=== PATIENT | male | born 1975 | race Two or more races ===

== ENCOUNTER → 2016-09-21 | Outpatient (REF) | payer BC | LOC: M SFHCLERA 09:39 | PROVIDERS: ATTEND Nurse Practitioner Family | DX: R19.7 Diarrhea, unspecified (principal) ==

== ENCOUNTER → 2018-07-15 | Outpatient (REF) | payer BC | LOC: M SFHCLERA 14:38 | PROVIDERS: ATTEND Physician Assistant | DX: R05 Cough (principal) ==

== ENCOUNTER 2019-06-20 12:18 | Emergency (ER) | payer BC, OTHER ==
[~2019-06-20] VITALS: Ht 172.7 cm; Wt 109.1 kg
--- NOTE | 2019-06-20 13:09 | REP ---
Clinical: Trauma. Injury. Technique: AP, lateral, bilateral oblique views of the right wrist. Findings: No acute fracture dislocation. Skeletal structures, joint spaces, and surrounding soft tissues appear relatively normal for age. Impression: No acute fracture dislocation. If the patient remains symptomatic consider reevaluation in 3-5 days including scaphoid view if necessary. Electronically Signed by Boni Browning MD 06/20/2019 01:02 P
--- NOTE | 2019-06-20 13:11 | REP ---
Clinical: Trauma. Technique: AP, lateral, bilateral oblique views right hand . Findings: The osseous structures and joint spaces are intact and normal. There is no evidence for acute fracture or dislocation. Surrounding soft tissues are unremarkable. No subcutaneous emphysema or radiodense foreign body. Impression: Normal right hand series. No obvious acute fracture. Electronically Signed by Boni Browning MD 06/20/2019 01:03 P
[2019-06-20] MEDS ORDERED: ADACEL/BOOSTRIX VACCINE (DIPHTH/PERTUSS/ACELL/TETANUS)0.5ML SYR (90715) IM ONE (13:30)
[2019-06-20] MEDS ORDERED: LIDOCAINE 1% SDV INJ 30 ML VIAL SC SCH (13:30)
[2019-06-20] MEDS ORDERED: MORPHINE 4 MG/ML 1ML VIAL/SYRINGE (J2270) IM ONE (13:30)
[2019-06-20] MEDS ORDERED: LIDOCAINE 1% MDV 20ML VIAL SC ONE (13:45)
[2019-06-20 14:42] VITALS: BP 120/74
== END 2019-06-20 14:47 | disposition home or self-care (01) ==
LOC: M ED 12:18
DX: S61.411A Laceration without foreign body of right hand, initial encounter (principal); X58.XXXA Exposure to other specified factors, initial encounter; Y92.099 Unspecified place in other non-institutional residence as the place of occurrence of the external cause; Y93.9 Activity, unspecified; Y99.9 Unspecified external cause status; I10 Essential (primary) hypertension; G89.29 Other chronic pain; R73.03 Prediabetes; F12.10 Cannabis abuse, uncomplicated
CPT/HCPCS: 12002; 73110; 73130; 90471; 90715; 96372; 99284; J2270

== ENCOUNTER → 2023-01-28 | Outpatient (CLI) | payer BC ==
[~2023-01-28] MED LIST: AMBI5TAB PO; AMIT10TA7 PO; CITA20TA6 PO; EFFE150C2 PO; GUAN1TA PO; HYDR-3490 PO; LISI20TA33 PO; LORA1TAB23 PO; METF-838 PO; METH-1164 PO; PERC5TAB12 PO; RANI150T14; SIMV40TA20 PO
== END ==
LOC: M SOG 11:25
PROVIDERS: ATTEND Orthopaedic Surgery Hand Surgery
DX: S62.316A Displaced fracture of base of fifth metacarpal bone, right hand, initial encounter for closed fracture (principal); S62.314A Displaced fracture of base of fourth metacarpal bone, right hand, initial encounter for closed fracture; X58.XXXA Exposure to other specified factors, initial encounter; Y92.89 Other specified places as the place of occurrence of the external cause; Y93.89 Activity, other specified; Y99.8 Other external cause status

== ENCOUNTER 2023-02-01 08:42 | Day surgery (SDC) | payer BC, OTHER ==
[~2023-02-01] VITALS: Ht 172.7 cm; Wt 122.5 kg
[~2023-02-01 08:42] MED LIST changes: -PERC5TAB12 PO
[2023-02-01] MEDS ORDERED: BACITRACIN OINTMENT 30GM TUBE As Ordered ONE (11:15)
[2023-02-01] MEDS ORDERED: propofoL 200 MG/20 ML VIAL As Ordered ONE (11:15)
[2023-02-01] MEDS ORDERED: ONDANSETRON 4MG 2ML VIAL As Ordered ONE (11:15)
[2023-02-01] MEDS ORDERED: dexmedeTOMIDine (4MCG/ML)200MCG/50ML BTL (PRECEDEX) As Ordered ONE (11:15)
[2023-02-01] MEDS ORDERED: MIDAZOLAM INJ 2MG/2ML VIAL As Ordered ONE (11:16)
[2023-02-01] MEDS ORDERED: fentaNYL 100 MCG/2 ML INJECTION As Ordered ONE ×2 (11:16→11:55)
[2023-02-01] MEDS ORDERED: LIDOCAINE 2% 100MG/5ML SDV (FOR ANES.) As Ordered ONE (11:17)
[2023-02-01] MEDS ORDERED: ceFAZolin 2 GM/D5W 50 ML IV BAG As Ordered ONE (11:29)
[2023-02-01] MEDS ORDERED: LABETALOL 100MG/20ML VIAL As Ordered ONE (12:02)
[2023-02-01] MEDS ORDERED: oxyCODONE 5MG TAB PO PRN (12:50)
[2023-02-01] MEDS ORDERED: MORPHINE 2 MG/ML 1ML VIAL IV PRN (12:50)
[2023-02-01] MEDS ORDERED: ONDANSETRON 4MG 2ML VIAL IV PRN (12:50)
[2023-02-01] MEDS ORDERED: PERC5TAB12 PO (13:08)
[2023-02-01] MEDS: fentaNYL 100 MCG/2 ML INJECTION IV PRN ×4 (13:19→13:40)
[2023-02-01 14:55] VITALS: BP 138/75; TEMP 97.5; O2SAT 97
== END 2023-02-01 15:03 | disposition home or self-care (01) ==
LOC: M SDC 08:42
PROVIDERS: ATTEND Orthopaedic Surgery Hand Surgery
DX: S62.316A Displaced fracture of base of fifth metacarpal bone, right hand, initial encounter for closed fracture (principal); S62.314A Displaced fracture of base of fourth metacarpal bone, right hand, initial encounter for closed fracture; W22.09XA Striking against other stationary object, initial encounter; Y92.89 Other specified places as the place of occurrence of the external cause; Y93.9 Activity, unspecified; Y99.9 Unspecified external cause status; R73.03 Prediabetes; E78.5 Hyperlipidemia, unspecified; Z79.84 Long term (current) use of oral hypoglycemic drugs; Z79.899 Other long term (current) drug therapy
CPT/HCPCS: 26615; 76000; C1713; J0665; J0690; J1100; J1920; J2250; J2405; J3010

== ENCOUNTER → 2023-02-11 | Outpatient (CLI) | payer OTHER ==
[~2023-02-11] MED LIST changes: +PERC5TAB12 PO
== END ==
LOC: M SOG 08:45
PROVIDERS: ATTEND Physician Assistant
DX: S62.314A Displaced fracture of base of fourth metacarpal bone, right hand, initial encounter for closed fracture (principal); S62.316A Displaced fracture of base of fifth metacarpal bone, right hand, initial encounter for closed fracture; X58.XXXA Exposure to other specified factors, initial encounter; Y92.9 Unspecified place or not applicable; Y93.9 Activity, unspecified; Y99.9 Unspecified external cause status

== ENCOUNTER → 2023-03-16 | Outpatient (CLI) | payer OTHER | LOC: M SOG 08:18 | PROVIDERS: ATTEND Physician Assistant | DX: S62.314A Displaced fracture of base of fourth metacarpal bone, right hand, initial encounter for closed fracture (principal) ==